=== PATIENT | female | born 2000 | race Caucasian/White ===

== ENCOUNTER 2020-06-13 14:27 | Outpatient (CLI) | payer OTHER ==
--- NOTE | 2020-06-13 15:48 | XRAY Report ---
PROCEDURE: Ankle 3 View LT INDICATIONS: LEFT ANKLE PAIN/INJURY TECHNIQUE: 3 views of the ankle were acquired. COMPARISON: None FINDINGS: Bones: In this patient with this given history, scrutiny is given to medial ankle. No fracture or av ulsion injuries are seen at this site. No fractures or dislocations are seen elsewhere. Ankle mortise is normally aligned. No suspicious b leslie lesions. The talar dome demonstrates an unremarkable appearance. Soft tissues: No tibiotalar joint effusion. Achilles tendon appears normal. IMPRESSION: Normal ankle plain films. Reviewed by: To Pink MD on 06/13/2020 2:47 PM ASHLEY Approved by: To Pink MD on 06/13/2020 2:47 PM ASHLEY Station ID: [id number]
== END 2020-06-13 23:59 | disposition home or self-care (01) ==
LOC: DI.N 14:27 → EDSTATUS 07-20 10:31
PROVIDERS: ATTEND Family Medicine
DX: M25.572 Pain in left ankle and joints of left foot (principal)

== ENCOUNTER 2021-05-29 13:34 | Outpatient (CLI) | payer OTHER ==
--- NOTE | 2021-05-29 14:50 | XRAY Report ---
PROCEDURE: Finger(s) RT INDICATIONS: SPRAIN OF RIGHT THUMB TECHNIQUE: AP hand, 2 views of the first finger(s) acquired. COMPARISON: None FINDINGS: Bones: No fractures or dislocations. No suspicious bony lesions. Soft tissues: No suspicious soft tissue calcifications. IMPRESSION: Unremarkable right thumb radiographs Reviewed by: Rich Jasso MD on 05/29/2021 1:49 PM AKDT Approved by: Rich Jasso MD on 05/29/2021 1:49 PM AKDT Station ID: [id number]
== END 2021-05-29 23:59 | disposition home or self-care (01) ==
LOC: DI.N 13:34
PROVIDERS: ATTEND Nurse Practitioner
DX: S63.601A Unspecified sprain of right thumb, initial encounter (principal)